=== PATIENT | male | born 1955 | race Caucasian/White ===

== ENCOUNTER 2016-07-12 16:54 | Emergency (ER) | payer BC ==
[2016-07-12 17:23] VITALS: BP 126/68
--- NOTE | 2016-07-12 18:37 | RAD ---
Indication: Productive cough. 2 views of the chest including dual energy PA views are reviewed. No mediastinal shift is noted. Heart is of normal size and configuration. Lung carvajal demonstrate no pleural fluid, pneumonia or pneumothorax. IMPRESSION: No active cardiopulmonary disease is identified.
--- NOTE | 2016-07-12 18:45 | UC ---
Karoline Mcdonald Claudia, scribed for Hiren Buckley MD on 07/12/16 at 1744 . General HPI - HPI Summary HPI Summary: 61 year old male presents to [facility] with Multi-Sx. Pt notes gradual onset of Sx evening. Pt notes fever night of 102.5 which was alleviated with ibuprofen and fever Tuesday afternoon of 101.5F alleviated with Tylenol. Pt notes myalgia and arthyalgia night Tuesday night. Pt notes the fevers have spontaneously resolved along with the body aches for the past 2 days. Pt notes that today he was feeling better and went to work after resting a lot this weekend. Pt notes that when he got home this pm he went for a walk and the Sx spontaneously reoccurred. Pt notes skin diaphoresis, dizziness, CP, back pain , nausea, MUÑOZ. Pt notes that he has a cardiac PMHx, he notes that he had a sleep test and heart monitor placed because she noticed his pulse skipped beats. However, the tests noted sleep apnea but otherwise nml. Pt denies dysuria, ear pain. - History of Current Complaint Chief Complaint: UCGeneralIllness Stated Complaint: FEVER,NAUSEA,BACK PAIN,MUÑOZ Time Seen by Provider: 07/12/16 17:26 Hx Obtained From: Patient Onset/Duration: Gradual Onset, Lasting Days - since Associated Signs & Symptoms: Positive: Back Pain, Headache, Nausea - Allergy/Home Medications Allergies/Adverse Reactions: Allergies Allergy/AdvReac Type Severity Reaction Status Date / Time No Known Allergies Allergy Verified 07/12/16 17:22 Home Medications: Home Medications Ginkgo Biloba [Ginkgo Biloba 230 mg] 1 tab PO 07/12/16 [History] Misc Natural Products [Saw [place]] 1 cap PO 07/12/16 [History] Multiple Vitamin [Multi Vitamin] 1 tab PO 07/12/16 [History] [place]-3 Fatty Acids [Fish Oil] 1,000 mg PO 07/12/16 [History] Vitamin B Complex CAP* [B Complex CAP*] 1 cap PO DAILY 07/12/16 [History Confirmed 07/12/16] PMH/Surg Hx/FS Hx/Imm Hx Previously Healthy: Yes Respiratory History Of: Reports: Asthma - Surgical History Surgical History: Yes Surgery Procedure, Year, and Place: vasectomy - Social History Occupation: Employed Full-time Lives: With Family Alcohol Use: None Substance Use Type: None Smoking Status (MU): Never Smoked Tobacco Review of Systems Constitutional: Negative Skin: Negative Eyes: Negative ENT: Negative Respiratory: Shortness Of Breath, Cough Cardiovascular: Chest Pain Gastrointestinal: Other - nausea Genitourinary: Negative Motor: Negative Neurovascular: Negative Musculoskeletal: Negative Neurological: Other - dizziness Psychological: Negative All Other Systems Reviewed And Are Negative: Yes Physical Exam Triage Information Reviewed: Yes Vital Signs: Initial Vital Signs Temp 98.6 F 07/12/16 17:15 Pulse 89 07/12/16 17:15 Resp 16 07/12/16 17:15 BP 126/68 07/12/16 17:15 Pulse Ox 97 07/12/16 17:15 - Additional Comments Vital signs: Reviewed Gen.: Patient is a well developed and nourished male in no acute distress. Patient is sitting comfortably on the stretcher. Head: Normacephalic and atraumatic Eyes: PERRLA, EOMI x2. Ears: Right ear canal and TM WNL and Left ear canal and TM WNL Nose and mouth: WNL Neck: Supple, Positive bilateral submandibular and anterior cervical lymphadenopathy. No JVD Lungs: CTA B/L CVS: S1 & S2 present. Ejection systolic murmur 2/6 ABDOMEN: Soft NT w/ positive BS. EXT: FROM x 4 NEURO: A+O X 3. Diagnostics - Radiology CXR Xray Interpretation: No Acute Changes - NO acute disease Radiology Interpretation Completed By: ED Physician - EKG Cardiac Rate: NL Cardiac Rhythm: Sinus: Normal - 84 beats/min ST Segment: Normal - no ST elevation Course/Dx - Course Course Of Treatment: 61 year old male presents to [facility] with Multi-Sx. Pt notes gradual onset of Sx evening. Pt notes fever night of 102.5 which was alleviated with ibuprofen and fever Tuesday afternoon of 101.5F alleviated with Tylenol. Pt notes myalgia and arthyalgia night Tuesday night. Pt notes the fevers have spontaneously resolved along with the body aches for the past 2 days. Pt notes that today he was feeling better and went to work after resting a lot this weekend. Pt notes that when he got home this pm he went for a walk and the Sx spontaneously reoccurred. Pt notes skin diaphoresis, dizziness, CP, back pain, nausea, MUÑOZ. Pt notes that he has a cardiac PMHx, he notes that he had a sleep test and heart monitor placed because she noticed his pulse skipped beats. However, the tests noted sleep apnea but otherwise nml. Pt denies dysuria, ear pain. Pt has multiple complaing non specific and msot of them are resolving. He complaints of fever and the pt is afebrile here. Flu and urine analysis negative. CXR no acute pathology. Therefore we ruled out pneumonia. Pt also complained of irregular heart rythym which he had a holter monitor and it was found to be within nml limits. EKG today shows NSR with no STEMI. Since this pt is asymptomatic here I offer to do bloodwork however he prefers to do at his PCP. So he was recommended to f/u with PCP and if Sx worsen he was told to f/u with ED or [facility] he understands and agrees. - Differential Dx - Multi-Symptom Differential Diagnoses: Other - Pneumonia, UTI, MUÑOZ, Influenza, URI Provider Diagnoses: fever, generalized weakness Discharge - Discharge Plan Condition: Stable Disposition: HOME Patient Education Materials: Fever in Adults (ED), Weakness (ED) Referrals: Jean Pierre Connelly MD [Primary Care Provider] - 2 Days Additional Instructions: Follow-up with your Primary Care Physician for possible blood work. The documentation as recorded by the Karoline velez Claudia accurately reflects the service I personally performed and the decisions made by me, Hiren Buckley MD.
== END 2016-07-12 18:47 | disposition home or self-care (01) ==
LOC: UCEAST 16:54
DX: R50.9 Fever, unspecified (principal); R53.1 Weakness
CPT/HCPCS: 71020; 81003; 87502; 93005; 99211; G0463